=== PATIENT | male | born 1940 | race Caucasian/White ===

== ENCOUNTER 2017-08-20 06:15 | Day surgery (SDC) | payer OTHER ==
[~2017-08-20 06:15] MED LIST: ENALAPRIL MALEA20 MG PO; KEFLEX500 MG PO; LOSARTAN POTASS50 MG PO; SIMVASTATIN10 MG PO; ULTRACET PO; ZANTAC300 MG PO; ZYLOPRIM100 MG PO
[2017-08-20] MEDS ORDERED: MIRALAX17 GM PO (09:43)
[2017-08-20] MEDS ORDERED: ULTRACET PO (09:43)
[2017-08-20] MEDS ORDERED: NEURONTIN300 MG PO (09:43)
[2017-08-20] MEDS ORDERED: ZOFRAN ODT4 MG PO (09:43)
== END 2017-08-20 12:50 | disposition home or self-care (01) ==
LOC: CIR.AMB 06:15
DX: K40.91 Unilateral inguinal hernia, without obstruction or gangrene, recurrent (principal); K42.9 Umbilical hernia without obstruction or gangrene